=== PATIENT | male | born 1970 | race American Indian/Alaskan Native ===

== ENCOUNTER 2020-12-18 17:05 | Emergency (ER) | payer OTHER ==
--- NOTE | 2020-12-18 18:25 | EDM.PDOC ---
ED HPI GENERAL MEDICAL PROBLEM - General Chief Complaint: Neuro Symptoms/Deficits Stated Complaint: WEAK/DIZZY/LEFT SIDE NECK/SHOULDER PAIN Time Seen by Provider: 12/18/20 18:10 Source of Information: Reports: Patient History Limitations: Reports: No Limitations - History of Present Illness INITIAL COMMENTS - FREE TEXT/NARRATIVE: 50-year-old male of [place] ancestry reports that he is driving back to [place] from [place] and around [place] he developed recurrent sharp stabbing pain in the left side of his neck that radiated towards his left shoulder that made him almost pull the car over to the side of the road for period of time. When this pain strikes it makes him lightly lightheaded and dizzy feeling. He has had it before on both sides but never to this severity. He cannot remember any trauma to his head or neck in the past. He denies any numbness or tingling in his left upper extremity. He is currently on medications only for his blood pressure. He denies having a headache. States since he has been in the ED and lying rather still he has had only a twinge of pain since coming to the ED. Onset: Today, Sudden Onset Date: 12/18/20 Onset Time: 16:00 Duration: Minutes:, Waxing/Waning Location: Reports: Neck (Been a little better since he has been in the emergency room. Left lateral neck pain rating towards the left shoulder.) Quality: Reports: Sharp (Sharp stabbing and spastic in nature. Perhaps shooting and lancinating suggestive of neurogenic pain), Stabbing Severity: Moderate (8 out of 10 when it occurs it does not last more than 2 to 5 seconds.) Improves with: Reports: None Worsens with: Reports: Other (Certain movements of his neck will make it worse.) Context: Denies: Activity ( He tends to lean his head towards the left side to ease the pain), Exercise, Lifting, Sick Contact, Trauma, Other Associated Symptoms: Denies: No Other Symptoms, Confusion, Chest Pain, Cough, cough w sputum, Diaphoresis, Fever/Chills, Headaches, Loss of Appetite, Rash, Seizure, Shortness of Breath 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.) - Related Data Allergies Allergy/AdvReac Type Severity Reaction Status Date / Time No Known Allergies Allergy Verified 12/18/20 17:17 Home Meds: Home Meds hydroCHLOROthiazide [Hydrochlorothiazide] 25 mg PO DAILY 12/18/20 [History] lisinopriL [Lisinopril] 40 mg PO DAILY 12/18/20 [History] Past Medical History Cardiovascular History: Reports: Hypertension Endocrine/Metabolic History: Reports: Obesity/BMI 30+ - Past Surgical History GI Surgical History: Reports: Cholecystectomy Musculoskeletal Surgical History: Reports: Arthroscopic Procedure Social & Family History - Tobacco Use Tobacco Use Status *Q: Never Tobacco User - Caffeine Use Caffeine Use: Reports: Coffee - Recreational Drug Use Recreational Drug Use: No ED ROS GENERAL - Review of Systems Review Of Systems: See Below Constitutional: Denies: Fever, Chills, Malaise, Weakness, Fatigue HEENT: Reports: No Symptoms Respiratory: Reports: No Symptoms Cardiovascular: Reports: Blood Pressure Problem Endocrine: Reports: Fatigue GI/Abdominal: Reports: No Symptoms : Reports: No Symptoms Musculoskeletal: Reports: Joint Pain (Cervical spine low back) Skin: Reports: No Symptoms Neurological: Reports: No Symptoms Psychiatric: Reports: No Symptoms Hematologic/Lymphatic: Reports: No Symptoms Immunologic: Reports: No Symptoms ED EXAM, UPPER BACK/NECK PAIN - Physical Exam Exam: See Below Exam Limited By: No Limitations General Appearance: Alert, WD/WN, No Apparent Distress, Other (Vital signs show temperature of 36.3. Heart rate 86 and sinus. Respiratory is 20 with O2 sats of 96% room air. BP 156/87.) Eye Exam: Bilateral Eye: Normal Inspection Ears Exam: Normal External Exam, Normal TMs Throat/Mouth Exam: Normal Inspection, Normal Lips, Normal Oropharynx Head Exam: Atraumatic, Normocephalic, Other (Increased pain in his cervical spine on axial compression of his head.) Neck Exam: Other (Patient has pain along the facet joints of the lateral cervical spine bilaterally. He has pain in the distribution of the omohyoid muscle on the left side of his neck and also slightly along the anterior lateral aspect of the sternocleidomastoid muscle. It is made worse by turning his head to the ) Nexus Criteria: No: Posterior, Midline Cervical Tenderness, Evidence of Intoxication, Altered Level of Consciousness, Focal Neurological Deficit, Painful Distraction Injuries Cardiovascular/Respiratory: Regular Rate, Rhythm, No M/R/G GI/Abdominal: Normal Bowel Sounds, Soft, Non-Tender, No Organomegaly, No Mass, Pelvis Stable Extremities: Normal Inspection, Normal Range of Motion, No Pedal Edema Neurologic: No Motor/Sensory Deficits, Alert, Oriented x 3 Psychiatric: Normal Affect, Normal Mood Skin Exam: Normal Color, Warm/Dry Lymphatic: No Adenopathy Course - Vital Signs Last Recorded V/S: Last Vital Signs Temp 36.3 C 12/18/20 17:13 Pulse 86 12/18/20 17:13 Resp 20 12/18/20 17:13 BP 156/87 H 12/18/20 17:13 Pulse Ox 96 12/18/20 17:13 - Orders/Labs/Meds Meds: Medications Discontinued Medications Generic Name Dose Route Start Last Admin Trade Name Teofilo PRN Reason Stop Dose Admin Ibuprofen 600 mg 12/18/20 18:55 12/18/20 19:02 Ibuprofen 600 Mg Tab PO 12/18/20 18:56 600 mg ONETIME ONE Administration - Radiology Interpretation Free Text/Narrative:: 50-year-old male presents to the ED for evaluation of acute onset of sharp stabbing pain in the left side of his neck. States it occurred while he was driving. He has had it occur in the right side of his neck the past as well as the left side but never to this severity. Today it was more intense than normal and almost made him pass out. He became worried that he might be having a stroke. On examination pain is well localized to the anterior aspect of the cervical spine laterally just inferior to the mastoid process. There is also pain to palpation over the omohyoid muscle and the lateral aspect of the sternocleidomastoid muscle. I suspect he has degenerative arthritic changes in his cervical spine as well. Plan CT cervical spine to be done. - Re-Assessments/Exams Free Text/Narrative Re-Assessment/Exam: 12/18/20 18:[address] of the cervical spine reveals mild degenerative arthritic changes particular at the C6-C7 level with narrowing of the disc space. He has lost some of his lumbar curvature as well. There is anterior osteophytes but no major posterior osteophytes. There is no major central canal stenosis and no major neural foraminal stenosis. Pain is coming from his lateral cervical spine at the C6-C7 level causing recurrent sharp stabbing lancinating pain. Advise simply using Aleve 2 tablets every 8 hours or Motrin 600 mg every 6 hours when this pain occurs. Reassured at length that he is not having a stroke and that this type of pain is going to recur. Departure - Departure Time of Disposition: 18:57 Disposition: Home, Self-Care 01 Condition: Fair Clinical Impression: Facet arthritis, degenerative, cervical spine - Discharge Information *PRESCRIPTION DRUG MONITORING PROGRAM REVIEWED*: Not Applicable *COPY OF PRESCRIPTION DRUG MONITORING REPORT IN PATIENT AUGUSTINE: Not Applicable Instructions: Osteoarthritis Referrals: PCP,Not In Area [Primary Care Provider] - Forms: ED Department Discharge Additional Instructions: Evaluation in the emergency room today in regards to development of sharp stabbing lancinating shooting pain in the left side of your neck while driving a motor vehicle today. Pain would come in intervals and be very incapacitating when it came. On examination you have a lot of pain throughout the facet joints of the left lateral neck particularly at C6-C7 level. There is also some pain on palpation of the omohyoid muscle in the neck as well as the lateral aspect of the sternocleidomastoid muscle. CT scan of your neck reveals degenerative arthritic change primarily at the C6-CV C7 level which is the lowest 2 vertebra in the cervical or neck bones. Consider it similar to 2 bones grinding against a each other causing lancinating shooting pain. Treatment is simply taking anti-inflammatory Aleve 2 tablets every 8 hours or ibuprofen 600 mg every 6 hours as needed for a few days until the pain settles down. The pain will tend to come and go off and on over the next many years. It certainly does not mean that there is any signs or symptoms of potential stroke or other serious medical problems. Sepsis Event Note (ED) - Evaluation Sepsis Screening Result: No Definite Risk
[2020-12-18] MEDS ORDERED: Ibuprofen 600 MG Tab PO ONE (18:55)
--- NOTE | 2020-12-18 18:59 | CT ---
CT cervical spine Technique: Multiple axial sections were obtained from above C2 inferiorly to the bottom of T2. Reconstructed coronal and sagittal images were obtained. Comparison: No prior cervical spine imaging is available. Findings: Several small bony densities are noted at the C1-2 articulation believed to be incidental. Artifact is noted secondary to the patient's body habitus. Mild disc space narrowing is seen at C3-4 and C4-5. Moderate disc space narrowing is noted at C5-6 and C6-7. Moderate disc space narrowing at C7-T1 is seen. Anterior osteophytes are seen at C3-4 through C6-7. Reconstructed coronal view shows a prominent spurring off the uncovertebral joint at C6-7 on the right side. No central canal stenosis is seen. Mild neural foraminal stenosis is suggested at C6-7 on the right side. No acute fracture or subluxation is seen. Impression: 1. Mild right-sided neural foraminal stenosis is suggested at C6-7. 2. Other degenerative change as noted above. 3. No acute fracture or subluxation is seen. Diagnostic code #2
== END 2020-12-18 19:05 | disposition home or self-care (01) ==
LOC: JD.ED 17:05
DX: M47.812 Spondylosis without myelopathy or radiculopathy, cervical region (principal); M50.323 Other cervical disc degeneration at C6-C7 level; E66.9 Obesity, unspecified; I10 Essential (primary) hypertension; Z68.42 Body mass index [BMI] 45.0-49.9, adult; Z79.899 Other long term (current) drug therapy
CPT/HCPCS: 72125; 99284; A9270